=== PATIENT | female | born 1970 | race African-American/Black ===

== ENCOUNTER → 2020-10-07 | Emergency (ER) | payer SELFPAY ==
[~2020-10-07] VITALS: Ht 167.6 cm; Wt 90.0 kg
[~2020-10-07] MED LIST: AMIODARONE HCL 50MG/ML 3ML VIAL IV ONE; ATROPINE SULFATE 1MG/10ML SYR ONE; CALCIUM CHLORIDE 1GM/10ML SYR IV ONE; DEXTROSE 50% WATER 50ML SYRINGE IV ONE; EPINEPHRINE 0.1MG/ML (1:10,000) 10ML SYR ONE; MAGNESIUM SULFATE 4G IN WATER 100ML PREMIX IV ONE; NOREPINEPHRINE 8 MG in DEXT 5% WATER 242 ML IV PRN; NOREPINEPHRINE 8 MG in DEXT 5% WATER 242 ML IV STA; PIPERACILLIN/TAZ 3.375G PREMIX 50 ML IV ONE; PROPOFOL 10MG/ML 100ML 100 ML IV STA; SODIUM BICARBONATE 8.4% 1 MEQ/ML 50ML SYR IV ONE; VANCOMYCIN 1 G PREMIX 200 ML IV ONE
[2020-10-07 21:48] LABS: BASOPHILS % 0.8 % (0.0-2.0); EOSINOPHILS % 0.9 % (0.0-5.0); HEMATOCRIT. 33.3 % (36.0-48.0); HEMOGLOBIN. 10.4 g/dL (12.0-16.0); LYMPHOCYTES % 55.7 % (20.0-50.0); MEAN CORPUSCULAR HEMOGLOBIN 28.4 pg (28.0-32.0); MEAN CORPUSCULAR VOLUME 90.4 fL (81.0-99.0); MEAN PLATELET VOLUME 8.2 fl (7.4-10.4); MONOCYTES % 2.4 % (2.0-8.0); NEUTROPHILS % 40.2 % (40.0-76.0); PLATELET 204 x1000/uL (130-400); RED BLOOD CELL COUNT 3.68 mill/uL (4.2-5.4); RED CELL DISTRIBUTION WIDTH 21.6 % (11.6-14.6)
[2020-10-07 21:57] LABS: CHLORIDE 95 mEq/L (98-107); INR 2.7; PARTIAL THROMBOPLASTIN TIME 30.9 sec (23.4-31.0); PROTHROMBIN TIME 26.8 sec (9.6-11.0)
[2020-10-07 23:09] VITALS: BP 0/0
== END ==
LOC: ER 20:39 → CANBEDREQ 10-08 05:02
DX: A41.9 Sepsis, unspecified organism (principal); R65.21 Severe sepsis with septic shock; I46.9 Cardiac arrest, cause unspecified; R57.0 Cardiogenic shock; I50.9 Heart failure, unspecified; Z20.822 Contact with and (suspected) exposure to COVID-19
CPT/HCPCS: 31500; 36415; 36556; 80053; 80307; 80329; 82962; 83605; 83880; 84145; 84484; 85025; 85610; 85730; 86850; 86900; 86901; 87040; 92950; 93005; 96365; 99291; J0282; J0461; J2543; J3370; J3475; J3490; J7060; Z7610; 94002